=== PATIENT | female | born 1985 | race Caucasian/White ===

== ENCOUNTER 2019-02-15 07:49 | Day surgery (SDC) | payer OTHER ==
[~2019-02-15 07:49] MED LIST: Lactated Ringers 1,000 ML IV ONE; Sensorcaine 0.25% 10 ML ONE
[2019-02-15] MEDS ORDERED: Lactated Ringers 1,000 ML IV ONE (08:02)
[2019-02-15] MEDS ORDERED: Lactated Ringers 1,000 ML IV SCH (08:30)
[2019-02-15] MEDS ORDERED: SUBLIMAZE 100 MCG/2 ML ONE ×2 (08:48→11:50)
[2019-02-15] MEDS ORDERED: Zemuron 100 MG/10 ML ONE (08:48)
[2019-02-15] MEDS ORDERED: DIPRIVAN 200 MG/20 ML IV ONE (08:48)
[2019-02-15] MEDS ORDERED: Versed 2 MG/2 ML Injection ONE (08:48)
[2019-02-15] MEDS ORDERED: Decadron 4 MG INJ ONE ×2 (08:55)
[2019-02-15] MEDS ORDERED: Zofran 4 MG/2 ML VIAL ONE (08:56)
[2019-02-15] MEDS ORDERED: TORAdol 30 mg Injection ONE (11:24)
[2019-02-15] MEDS ORDERED: BRIDION 200MG/2ML IV ONE (11:39)
--- NOTE | 2019-02-15 12:41 | OP ---
SURGERY DATE/TIME: 02/15/2019 1110 PREOPERATIVE DIAGNOSIS: Undesired fertility. POSTOPERATIVE DIAGNOSIS: Undesired fertility. PROCEDURE: Bilateral tubal ligation. SURGEON: Mamadou Henning M.D. ANESTHESIA: General. COMPLICATIONS: None. CONDITION: Stable. INDICATION: The patient requiring infertility. DESCRIPTION OF PROCEDURE: Taken to surgery. General anesthetic. Routine prep and drape. She had a small umbilical hernia this was cannulated with Veress needle deliberately. The camera placed, 5 port placed to the right side. Good visualization. There had been some pinpoint old endometriosis located just around the left ovary area otherwise things were normal. There were no adhesions. Uterus was normal size. Both tubes satisfactory. Both ovaries fairly small. Junction of proximal middle third on the left side transmurally fulgurated until resistance went to 0 for 2 cm distance, similarly on the right. These both followed out from the fundus to the fimbria. The round ligaments were satisfactory and the meso-ovarian pedicles bilaterally were satisfactory. The small umbilical defect was closed with 0 Vicryl suture under direct visualization. The air was let out. Skin closed with 4-0 Vicryl and Steri-Strips. The patient tolerated the procedure satisfactorily.
[2019-02-15 13:25] LABS: Appearance CLEAR (CLEAR); Bilirubin NEGATIVE (NEGATIVE); Blood NEGATIVE Ery/ul (0-5); Glucose NEGATIVE (NEGATIVE); Ketones NEGATIVE (NEGATIVE); Leukocyte Esterase NEGATIVE (NEGATIVE); Nitrite NEGATIVE (NEGATIVE); Protein,Urine Dip NEGATIVE (Negative); Specific Gravity 1.008 (1.005-1.025); Urobilinogen NEGATIVE mg/dL (0-1)
[2019-02-15 13:39] VITALS: O2SAT 99
[2019-02-15 13:46] VITALS: BP 112/66; PULSE 60
== END 2019-02-15 13:30 | disposition home or self-care (01) ==
LOC: SDC 07:49
PROVIDERS: ATTEND Surgery
DX: Z30.2 Encounter for sterilization (principal)
CPT/HCPCS: 81001; 84703; 87086; J1100; J1885; J2250; J2405; J2704; J3010